=== PATIENT | female | born 1990 | race Hispanic/Latino ===

== ENCOUNTER 2021-01-11 09:45 | Outpatient (CLI) | payer BC ==
[2021-01-11 11:02] LABS: Hemoglobin 12.5 g/dL (12.0-15.5); Mean Corpuscular HGB CONC 32.2 g/dL (32.0-36.0); Mean Corpuscular Hemoglobin 28.7 pg (27.0-33.0); Mean Platelet Volume 10.4 fl (7.4-10.4); Platelet Count 275 10x3/uL (150-450); RBC Distribution Width 12.7 % (11.5-14.5); Red Blood Cell (RBC) Count 4.36 10x6/uL (3.90-5.03); White Blood Cell (WBC) Count 8.3 10x3/uL (3.5-10.5)
[2021-01-11 11:12] LABS: BHCG - Serum Negative (NEGATIVE); Pregs Control Background? CLEAR/WHITE (CLR/WHITE); Pregs Control Bar Appear? YES (CONTROL BAR)
[2021-01-11 11:54] LABS: Bilirubin Neg (Negative); Blood, Urine 25 (Negative); Clarity Clear (Clear); Glucose, Urine (Dipstick) Normal (Negative); Ketone, Urine Negative (Negative); Leukocyte Negative (Negative); Nitrite Negative (Negative); Protein, Urine (Dipstick) Negative (Neg-Trace); Specific Gravity, Urine 1.025 (1.002-1.036); Urobilinogen Normal mg/dL (Less than 2)
[2021-01-11 12:00] LABS: RBC/HPF 0-3 HPF (0-3)
[2021-01-12 01:24] LABS: SARS-CoV-2 PCR by NAA Not Detected (NotDetected)
== END 2021-01-11 09:46 | disposition home or self-care (01) ==
LOC: CSHLAB 09:45
PROVIDERS: ATTEND Obstetrics & Gynecology
DX: Z01.812 Encounter for preprocedural laboratory examination (principal); Z20.822 Contact with and (suspected) exposure to COVID-19; N93.9 Abnormal uterine and vaginal bleeding, unspecified; D25.9 Leiomyoma of uterus, unspecified; N94.6 Dysmenorrhea, unspecified; R10.2 Pelvic and perineal pain
CPT/HCPCS: 81001; 84703; 85027; 87635; U0003; U0005

== ENCOUNTER 2021-01-15 06:04 | Day surgery (SDC) | payer BC ==
[2021-01-14 11:10] VITALS: BMI 29.0
[2021-01-15] MEDS ORDERED: Lidocaine 1% MPF 2 ML VIAL ONE (06:20)
[2021-01-15] MEDS ORDERED: Bupivacaine PF 0.5% 30 ML VIAL ONE (06:41)
[2021-01-15] MEDS ORDERED: Calcium Gluconate 100 MG/ML 10 ML ONE (06:42)
[2021-01-15] MEDS ORDERED: EPINEPHrine 1 MG/ML AMP ONE (06:42)
[2021-01-15] MEDS ORDERED: Thrombin 5000 UNITS/5 ML VIAL ONE (06:43)
[2021-01-15] MEDS ORDERED: Calcium Chloride 1 GM/10 ML Abboject SYRINGE ONE (06:44)
[2021-01-15] MEDS ORDERED: Lidocaine 2% Jelly 5 ML TUBE ONE (06:47)
[2021-01-15] MEDS ORDERED: PROPOFOL 20 ML ONE (06:52)
[2021-01-15] MEDS ORDERED: Fentanyl 100 MCG/2 ML VIAL ONE ×2 (06:52→10:05)
[2021-01-15] MEDS ORDERED: Lidocaine 1% PF 5 ML VIAL ONE (06:52)
[2021-01-15] MEDS ORDERED: Rocuronium Bromide 10 MG/ML (10ML VIAL) ONE (06:52)
[2021-01-15] MEDS ORDERED: Dexamethasone 20 MG/5 ML VIAL ONE (07:23)
[2021-01-15] MEDS ORDERED: Glycopyrrolate 0.2 MG/ML 5 ML SYRINGE ONE (07:34)
[2021-01-15] MEDS ORDERED: Ondansetron PF 4 MG/2 ML Vial ONE ×2 (09:04→12:17)
[2021-01-15] MEDS ORDERED: Ketorolac Tromethamine 30 MG/ML VIAL ONE (09:05)
[2021-01-15] MEDS ORDERED: diphenhydrAMINE 25 MG CAP PO PRN (09:22)
[2021-01-15] MEDS ORDERED: Simethicone Chewable 80 MG TAB PO PRN (09:22)
[2021-01-15] MEDS ORDERED: Ondansetron PF 4 MG/2 ML Vial IVP PRN (09:22)
[2021-01-15] MEDS ORDERED: HYDROcodone/Acetaminophen 10/325 mg Tablet PO PRN (09:22)
[2021-01-15] MEDS ORDERED: Morphine 2 MG/ML VIAL SLOW IVP PRN (09:22)
[2021-01-15] MEDS ORDERED: Lactated Ringer's 1,000 ML IV SCH (09:30)
[2021-01-15] MEDS ORDERED: Acetaminophen 500 MG TAB PO PRN (10:20)
[2021-01-15] MEDS ORDERED: Morphine 2 MG/ML VIAL ONE (11:00)
[2021-01-15] MEDS ORDERED: Ketorolac Tromethamine 30 MG/ML VIAL IVP SCH (12:00)
[2021-01-15 12:03] LABS: Hemoglobin 11.3 g/dL (12.0-15.5)
[2021-01-15] MEDS ORDERED: HYDROcodone/Acetaminophen 10/325 mg Tablet ONE (13:06)
== END 2021-01-15 15:20 | disposition home or self-care (01) ==
LOC: CSHSDC 06:04
PROVIDERS: ATTEND Obstetrics & Gynecology
PROC: 0UT74ZZ Resection of Bilateral Fallopian Tubes, Percutaneous Endoscopic Approach (ICD-10-PCS; principal; 2021-01-15)
PROC: 0UT94ZZ Resection of Uterus, Percutaneous Endoscopic Approach (ICD-10-PCS; principal; 2021-01-15)
DX: N72 Inflammatory disease of cervix uteri (principal); N84.0 Polyp of corpus uteri; N80.0 Endometriosis of uterus; D25.2 Subserosal leiomyoma of uterus; N83.292 Other ovarian cyst, left side; I47.2 Ventricular tachycardia; D89.89 Other specified disorders involving the immune mechanism, not elsewhere classified; Z79.899 Other long term (current) drug therapy
CPT/HCPCS: 85014; 85018; 88307; J0171; J0610; J0690; J1100; J1885; J2270; J2405; J2704; J3010; S0020

== ENCOUNTER 2024-08-17 10:40 | Outpatient (CLI) | payer BC | END 2024-08-17 10:41 | disposition home or self-care (01) | LOC: CSHRAD 10:40 | PROVIDERS: ATTEND Internal Medicine Gastroenterology | DX: K58.1 Irritable bowel syndrome with constipation (principal); N80.9 Endometriosis, unspecified; K59.00 Constipation, unspecified; M32.9 Systemic lupus erythematosus, unspecified; I47.10 Supraventricular tachycardia, unspecified; R10.9 Unspecified abdominal pain; R13.10 Dysphagia, unspecified; G90.A Postural orthostatic tachycardia syndrome [POTS] | CPT/HCPCS: 74019 ==